=== PATIENT | male | born 1965 | race Caucasian/White ===

== ENCOUNTER 2020-04-08 10:52 | Emergency (ER) | payer BC ==
[~2020-04-08] VITALS: Ht 172.7 cm; Wt 74.8 kg
[2020-04-08] MEDS ORDERED: IBU800 MG PO (12:15)
== END 2020-04-08 12:28 | disposition home or self-care (01) ==
LOC: ER 10:52
DX: M75.31 Calcific tendinitis of right shoulder (principal); S42.001P Fracture of unspecified part of right clavicle, subsequent encounter for fracture with malunion; F17.210 Nicotine dependence, cigarettes, uncomplicated; X58.XXXD Exposure to other specified factors, subsequent encounter
CPT/HCPCS: 20610; 73030; 99283-25; J3301

== ENCOUNTER 2022-09-11 20:45 | Emergency (ER) | payer BC ==
[~2022-09-11] VITALS: Ht 172.7 cm; Wt 77.1 kg
[~2022-09-11 20:45] MED LIST: IBU800 MG PO
[2022-09-11 21:12] VITALS: BP 142/90
[2022-09-11] MEDS ORDERED: AMOCLA875 PO (21:18)
== END 2022-09-11 22:00 | disposition home or self-care (01) ==
LOC: ER 20:45
DX: K04.7 Periapical abscess without sinus (principal); F17.210 Nicotine dependence, cigarettes, uncomplicated
CPT/HCPCS: A9270